=== PATIENT | female | born 1935 | race African-American/Black ===

== ENCOUNTER 2021-02-11 10:50 | Inpatient (IN) | payer MEDICARE, MEDICAID ==
[~2021-02-11] VITALS: Ht 154.9 cm; Wt 62.1 kg
[~2021-02-11 10:50] MED LIST: ETOMIDATE 2MG/ML 10ML VIAL IV ONE; SODIUM CHLORIDE 0.9% 10ML VIAL ONE; VECURONIUM BROMIDE 10 MG/VIAL IV ONE
[2021-02-11 11:42] LABS: HEMATOCRIT. 35.2 % (36.0-48.0); MEAN CORPUSCULAR HEMOGLOBIN 29.1 pg (28.0-32.0); MEAN CORPUSCULAR VOLUME 92.8 fL (81.0-99.0); MEAN PLATELET VOLUME 8.8 fl (7.4-10.4); PLATELET 186 x1000/uL (130-400); RED BLOOD CELL COUNT 3.79 mill/uL (4.2-5.4); RED CELL DISTRIBUTION WIDTH 17.1 % (11.6-14.6)
[2021-02-11 11:47] LABS: CHLORIDE 100 mEq/L (98-107); INR 1.3; PROTHROMBIN TIME 13.6 sec (9.6-11.0)
[2021-02-11 12:15] LABS: NUCLEATED RED BLOOD CELLS 3 /100 WBC; PLATELET ESTIMATE NORMAL
[2021-02-11] MEDS ORDERED: SODIUM CHLORIDE 0.9% 1000ML BAG (SEPSIS BOLUS) IV ONE (12:15)
[2021-02-11] MEDS ORDERED: AZITHROMYCIN 500 MG in DEXT 5% WATER 250 ML IV ONE (12:45)
[2021-02-11] MEDS ORDERED: CEFTRIAXONE 1 G PREMIX 50 ML IV ONE (12:45)
[2021-02-11] MEDS ORDERED: NITROGLYCERIN 0.4MG TABLET SL SL PRN (14:15)
[2021-02-11] MEDS ORDERED: ACETAMINOPHEN 325MG TABLET PO PRN ×2 (14:15)
[2021-02-11] MEDS ORDERED: IPRATROPIUM/ALBUTEROL 0.5-3(2.5)MG/3ML NEB NEB PRN (14:15)
[2021-02-11] MEDS ORDERED: GUAIFENESIN 200MG/10ML SUGAR FREE UDC PO PRN (14:15)
[2021-02-11] MEDS ORDERED: MAGNESIUM/ALUMINUM HYDROXIDE/SIMETHICONE 30ML UDC PO PRN (14:15)
[2021-02-11] MEDS ORDERED: ZOLPIDEM TARTRATE 5MG TABLET PO PRN (14:15)
[2021-02-11] MEDS ORDERED: KETOROLAC 15MG/ML VIAL IV PRN (14:15)
[2021-02-11] MEDS ORDERED: ONDANSETRON HCL 4MG/2ML INJ IV PRN (14:15)
[2021-02-11] MEDS ORDERED: CLONIDINE 0.1MG TABLET PO PRN (14:15)
[2021-02-11 16:00] LABS: FERRITIN 93 ng/mL (10-291)
[2021-02-11 16:08] LABS: VITAMIN B12 SERUM >2000 pg/mL pg/mL (211-911)
[2021-02-11 16:19] LABS: BG CARBOXYHEMOGLOBIN 1.5 % (0.5-1.5); BG DEOXYHEMOGLOBIN 1.4 % (0.0-5.0); BG FRACTION INSPIRED OXYGEN 100; BG HCO3 ACT 27.9 mmol/L (22.0-26.0); BG METHEMOGLOBIN 0.4 % (0.0-1.5); BG OXYGEN SATURATION 98.6 % (92.0-98.5); BG OXYHEMOGLOBIN 96.7 % (94.0-97.0); BG PCO2 96.6 mmHg (35.0-45.0); BG PH 7.078 (7.350-7.450); BG PO2 154.5 mmHg (75.0-100.0); BG SAMPLE SITE RIGHT BRACHIAL; BG TOTAL HEMOGLOBIN 11.8 g/dL (12.0-18.0); BG VENT MODE MASK - NRB
[2021-02-11 16:38] LABS: CLARITY URINE TURBID (CLEAR); COLOR URINE DARK YELLOW (YELLOW); KETONES URINE TRACE (NEGATIVE); LEUKOCYTE ESTERASE URINE 1+ (NEGATIVE); NITRITE URINE NEGATIVE (NEGATIVE); OCCULT BLOOD URINE 2+ (NEGATIVE); PROTEIN URINE 3+ (NEGATIVE); SPECIFIC GRAVITY URINE 1.017 (1.005-1.030)
[2021-02-11 17:17] LABS: *AMPHETAMINES SCREEN URINE NEGATIVE (NEGATIVE); *BARBITURATES SCREEN URINE NEGATIVE (NEGATIVE)
[2021-02-11 17:18] LABS: *BENZODIAZEPINES SCREEN URINE NEGATIVE (NEGATIVE); *COCAINE SCREEN URINE NEGATIVE (NEGATIVE); CANNABINOID URINE SCREEN NEGATIVE (NEGATIVE); METHADONE URINE SCREEN NEGATIVE (NEGATIVE); OPIATES URINE SCREEN PRESUMTIVE POSITIVE (NEGATIVE); PHENCYCLIDINE URINE SCREEN NEGATIVE (NEGATIVE)
[2021-02-11] MEDS ORDERED: ETOMIDATE 2MG/ML 10ML VIAL IV ONE (18:30)
[2021-02-11] MEDS ORDERED: MIDAZOLAM HCL 100 MG in DEXT 5% WATER 80 ML IV ONE (18:30)
[2021-02-11] MEDS ORDERED: MIDAZOLAM HCL 100 MG in SODIUM CHLORIDE 0.9% 80 ML IV NR (18:37)
[2021-02-11] MEDS ORDERED: NOREPINEPHRINE 8MG/250ML PMX 250 ML IV ONE (18:45)
[2021-02-11] MEDS ORDERED: FENTANYL CITRATE/PF 2,500 MCG in SODIUM CHLORIDE 0.9% 200 ML IV PRN (19:15)
[2021-02-11 19:35] LABS: BG BASE EXCESS 0.2 mmol/L (-2.0-2.0); BG CARBOXYHEMOGLOBIN 0.5 % (0.5-1.5); BG DEOXYHEMOGLOBIN 0.2 % (0.0-5.0); BG FRACTION INSPIRED OXYGEN 100; BG HCO3 ACT 26.5 mmol/L (22.0-26.0); BG METHEMOGLOBIN 0.3 % (0.0-1.5); BG OXYGEN SATURATION 99.8 % (92.0-98.5); BG PCO2 50.8 mmHg (35.0-45.0); BG PH 7.336 (7.350-7.450); BG PO2 505.2 mmHg (75.0-100.0); BG SAMPLE SITE RIGHT RADIAL; BG TOTAL HEMOGLOBIN 11.6 g/dL (12.0-18.0); BG VENT MODE VENT - AC
[2021-02-11] MEDS: ZINC SULFATE 220 MG ( 50 ) CAPSULE PO SCH (20:19)
[2021-02-11] MEDS: ASCORBIC ACID 500 MG TABLET PO SCH (20:20)
[2021-02-11] MEDS: FAMOTIDINE 20MG TABLET PO SCH (20:20)
[2021-02-11] MEDS: CHOLECALCIFEROL (D3) 1000 UNIT TABLET PO SCH (20:21)
[2021-02-11] MEDS ORDERED: ENOXAPARIN 60MG/0.6ML SYR SUBCUT SCH (21:00)
[2021-02-11] MEDS: DEXT 5%/LACTATED RINGERS 1,000 ML IV SCH (22:42)
[2021-02-11 23:05] LABS: CREATINE KINASE MB FRACTION 10.9 ng/mL (0.5-3.6)
[2021-02-12] VITALS (96 sets, daily range): BP systolic 84–156; BP diastolic 41–98
[2021-02-12] MEDS: IPRATROPIUM/ALBUTEROL 0.5-3(2.5)MG/3ML NEB HHN SCH ×6 (00:39→20:35)
[2021-02-12] MEDS: ENOXAPARIN 60MG/0.6ML SYR SUBCUT SCH (01:41)
[2021-02-12] MEDS ORDERED: MIDAZOLAM HCL 100 MG in SODIUM CHLORIDE 0.9% 80 ML IV PRN (05:00)
[2021-02-12 05:56] LABS: HEMATOCRIT. 29.8 % (36.0-48.0); HEMOGLOBIN. 9.9 g/dL (12.0-16.0); MEAN CORPUSCULAR HEMOGLOBIN 29.7 pg (28.0-32.0); MEAN CORPUSCULAR VOLUME 89.2 fL (81.0-99.0); MEAN PLATELET VOLUME 9.1 fl (7.4-10.4); PLATELET 159 x1000/uL (130-400); RED BLOOD CELL COUNT 3.34 mill/uL (4.2-5.4); RED CELL DISTRIBUTION WIDTH 16.4 % (11.6-14.6)
[2021-02-12 06:02] LABS: CHLORIDE 105 mEq/L (98-107)
[2021-02-12 06:08] LABS: PHOSPHORUS 2.2 mg/dL (2.5-4.9)
[2021-02-12 06:10] LABS: CREATINE KINASE 57 IU/L (26-192)
[2021-02-12 06:15] LABS: CREATINE KINASE MB FRACTION 8.8 ng/mL (0.5-3.6)
[2021-02-12] MEDS ORDERED: IOHEXOL-350 100 ML BOTTLE ONE (06:36)
[2021-02-12] MEDS: ASCORBIC ACID 500 MG TABLET PO SCH ×3 (08:56→21:29)
[2021-02-12] MEDS: DOCUSATE SODIUM 100MG CAPSULE PO PRN (08:56)
[2021-02-12] MEDS: ZINC SULFATE 220 MG ( 50 ) CAPSULE PO SCH (08:56)
[2021-02-12] MEDS: CHOLECALCIFEROL (D3) 1000 UNIT TABLET PO SCH (08:56)
[2021-02-12] MEDS: FAMOTIDINE 20MG TABLET PO SCH (08:56)
[2021-02-12] MEDS: DEXT 5%/LACTATED RINGERS 1,000 ML IV SCH ×2 (08:57→21:29)
[2021-02-12] MEDS ORDERED: CEFTRIAXONE 1 G PREMIX 50 ML IV SCH (09:00)
[2021-02-12] MEDS ORDERED: ASPIRIN 325MG EC TABLET PO SCH (09:00)
[2021-02-12] MEDS ORDERED: ENOXAPARIN 30MG/0.3ML SYR SUBCUT SCH (09:00)
[2021-02-12] MEDS: NOREPINEPHRINE 8 MG in DEXT 5% WATER 242 ML IV PRN (09:30)
[2021-02-12] MEDS: FENTANYL CITRATE/PF 2,500 MCG in SODIUM CHLORIDE 0.9% 200 ML IV PRN (09:32)
[2021-02-12 09:45] LABS: BG BASE EXCESS 2.1 mmol/L (-2.0-2.0); BG CARBOXYHEMOGLOBIN 0.3 % (0.5-1.5); BG DEOXYHEMOGLOBIN 7.1 % (0.0-5.0); BG FRACTION INSPIRED OXYGEN 40; BG HCO3 ACT 27.6 mmol/L (22.0-26.0); BG METHEMOGLOBIN 0.3 % (0.0-1.5); BG OXYGEN SATURATION 92.9 % (92.0-98.5); BG OXYHEMOGLOBIN 92.3 % (94.0-97.0); BG PCO2 46.9 mmHg (35.0-45.0); BG PH 7.387 (7.350-7.450); BG PO2 66.6 mmHg (75.0-100.0); BG SAMPLE SITE RIGHT RADIAL; BG VENT MODE VENT - AC
[2021-02-12] MEDS ORDERED: AZITHROMYCIN 500 MG in DEXT 5% WATER 250 ML IV SCH (11:00)
[2021-02-12] MEDS: CEFTRIAXONE 1,000 MG in DEXTROSE 5% WATER 50 ML IV SCH (11:10)
[2021-02-12] MEDS: AZITHROMYCIN 500 MG in DEXT 5% WATER 250 ML IV SCH (12:49)
[2021-02-12] MEDS: METHYLPREDNISOLONE SOD SUCC 40 MG/ML VIAL IV SCH ×2 (12:49→21:31)
[2021-02-12 13:28] LABS: PLATELET ESTIMATE NORMAL
[2021-02-12 19:30] LABS: CREATINE KINASE MB FRACTION 8.8 ng/mL (0.5-3.6)
[2021-02-12] MEDS: MIDAZOLAM HCL 100 MG in SODIUM CHLORIDE 0.9% 80 ML IV PRN (23:41)
[2021-02-13] VITALS (99 sets, daily range): BP systolic 64–150; BP diastolic 38–87
[2021-02-13] MEDS: IPRATROPIUM/ALBUTEROL 0.5-3(2.5)MG/3ML NEB HHN SCH ×6 (00:21→20:11)
[2021-02-13] MEDS: NOREPINEPHRINE 8 MG in DEXT 5% WATER 242 ML IV PRN ×2 (01:05→16:29)
[2021-02-13] MEDS: ENOXAPARIN 60MG/0.6ML SYR SUBCUT SCH (01:06)
[2021-02-13] MEDS: METHYLPREDNISOLONE SOD SUCC 40 MG/ML VIAL IV SCH (05:10)
[2021-02-13 05:17] LABS: HEMATOCRIT. 31.8 % (36.0-48.0); HEMOGLOBIN. 10.5 g/dL (12.0-16.0); MEAN CORPUSCULAR HEMOGLOBIN 29.4 pg (28.0-32.0); MEAN CORPUSCULAR VOLUME 89.3 fL (81.0-99.0); MEAN PLATELET VOLUME 9.5 fl (7.4-10.4); PLATELET 141 x1000/uL (130-400); RED BLOOD CELL COUNT 3.56 mill/uL (4.2-5.4); RED CELL DISTRIBUTION WIDTH 16.7 % (11.6-14.6)
[2021-02-13 05:23] LABS: CHLORIDE 107 mEq/L (98-107)
[2021-02-13 08:03] LABS: BG BASE EXCESS 1.7 mmol/L (-2.0-2.0); BG CARBOXYHEMOGLOBIN 0.4 % (0.5-1.5); BG DEOXYHEMOGLOBIN 9.4 % (0.0-5.0); BG HCO3 ACT 28.8 mmol/L (22.0-26.0); BG METHEMOGLOBIN 0.3 % (0.0-1.5); BG OXYGEN SATURATION 90.5 % (92.0-98.5); BG OXYHEMOGLOBIN 89.9 % (94.0-97.0); BG PCO2 57.6 mmHg (35.0-45.0); BG PH 7.317 (7.350-7.450); BG PO2 63.3 mmHg (75.0-100.0); BG SAMPLE SITE RIGHT BRACHIAL; BG TOTAL HEMOGLOBIN 11.4 g/dL (12.0-18.0); BG VENT MODE VENT - AC
[2021-02-13] MEDS: ASPIRIN 81MG EC TABLET PO SCH (09:07)
[2021-02-13] MEDS: DOCUSATE SODIUM 100MG CAPSULE PO PRN (09:07)
[2021-02-13] MEDS: ZINC SULFATE 220 MG ( 50 ) CAPSULE PO SCH (09:07)
[2021-02-13] MEDS: ASCORBIC ACID 500 MG TABLET PO SCH ×2 (09:08→21:09)
[2021-02-13] MEDS: FAMOTIDINE 20MG TABLET PO SCH (09:08)
[2021-02-13] MEDS: CHOLECALCIFEROL (D3) 1000 UNIT TABLET PO SCH (09:08)
[2021-02-13 10:42] LABS: NUCLEATED RED BLOOD CELLS 1 /100 WBC; PLATELET ESTIMATE NORMAL
[2021-02-13] MEDS: CEFTRIAXONE 1,000 MG in DEXTROSE 5% WATER 50 ML IV SCH (12:17)
[2021-02-13] MEDS: DEXT 5%/LACTATED RINGERS 1,000 ML IV SCH (12:59)
[2021-02-13] MEDS: AZITHROMYCIN 500 MG in DEXT 5% WATER 250 ML IV SCH (12:59)
[2021-02-13] MEDS: FENTANYL CITRATE/PF 2,500 MCG in SODIUM CHLORIDE 0.9% 200 ML IV PRN (13:00)
[2021-02-13] MEDS: METHYLPREDNISOLONE SOD SUCC 125 MG/2 ML VIAL IV SCH ×2 (16:28→21:10)
[2021-02-14] VITALS (95 sets, daily range): BP systolic 89–154; BP diastolic 44–84
[2021-02-14] MEDS: IPRATROPIUM/ALBUTEROL 0.5-3(2.5)MG/3ML NEB HHN SCH ×6 (00:17→20:11)
[2021-02-14] MEDS: ENOXAPARIN 60MG/0.6ML SYR SUBCUT SCH (01:41)
[2021-02-14] MEDS: DEXT 5%/LACTATED RINGERS 1,000 ML IV SCH ×2 (01:41→15:19)
[2021-02-14] MEDS: MIDAZOLAM HCL 100 MG in SODIUM CHLORIDE 0.9% 80 ML IV PRN (06:43)
[2021-02-14] MEDS: METHYLPREDNISOLONE SOD SUCC 125 MG/2 ML VIAL IV SCH ×3 (06:43→21:39)
[2021-02-14] MEDS: CHOLECALCIFEROL (D3) 1000 UNIT TABLET PO SCH (09:35)
[2021-02-14] MEDS: ZINC SULFATE 220 MG ( 50 ) CAPSULE PO SCH (09:35)
[2021-02-14] MEDS: FAMOTIDINE 20MG TABLET PO SCH (09:35)
[2021-02-14] MEDS: ASCORBIC ACID 500 MG TABLET PO SCH ×2 (09:35→20:38)
[2021-02-14] MEDS: ASPIRIN 81MG EC TABLET PO SCH (09:35)
[2021-02-14 10:25] LABS: BG BASE EXCESS 2.8 mmol/L (-2.0-2.0); BG CARBOXYHEMOGLOBIN 1.2 % (0.5-1.5); BG DEOXYHEMOGLOBIN 4.4 % (0.0-5.0); BG FRACTION INSPIRED OXYGEN 50; BG HCO3 ACT 29.6 mmol/L (22.0-26.0); BG METHEMOGLOBIN 0.3 % (0.0-1.5); BG OXYHEMOGLOBIN 94.1 % (94.0-97.0); BG PCO2 53.9 mmHg (35.0-45.0); BG PEEP (cmH2O) 0 cmH2O; BG PH 7.358 (7.350-7.450); BG PO2 85.5 mmHg (75.0-100.0); BG SAMPLE SITE LEFT RADIAL; BG TOTAL HEMOGLOBIN 9.5 g/dL (12.0-18.0); BG VENT MODE VENT - AC
[2021-02-14] MEDS: FOLIC ACID 1MG TABLET PO SCH (10:58)
[2021-02-14] MEDS: THIAMINE HCL 100MG TABLET PO SCH (10:58)
[2021-02-14] MEDS: CEFTRIAXONE 1,000 MG in DEXTROSE 5% WATER 50 ML IV SCH (10:58)
[2021-02-14] MEDS: FENTANYL CITRATE/PF 2,500 MCG in SODIUM CHLORIDE 0.9% 200 ML IV PRN (11:00)
[2021-02-14] MEDS: AZITHROMYCIN 500 MG in DEXT 5% WATER 250 ML IV SCH (13:35)
[2021-02-14] MEDS: MEROPENEM 1,000 MG in SODIUM CHLORIDE 0.9% 50 ML IV SCH (18:36)
[2021-02-15] VITALS (94 sets, daily range): BP systolic 85–132; BP diastolic 45–85
[2021-02-15] MEDS: IPRATROPIUM/ALBUTEROL 0.5-3(2.5)MG/3ML NEB HHN SCH ×5 (00:25→20:10)
[2021-02-15] MEDS: ENOXAPARIN 60MG/0.6ML SYR SUBCUT SCH (01:01)
[2021-02-15] MEDS: DEXT 5%/LACTATED RINGERS 1,000 ML IV SCH ×2 (03:14→16:35)
[2021-02-15] MEDS: MIDAZOLAM HCL 100 MG in SODIUM CHLORIDE 0.9% 80 ML IV PRN (03:15)
[2021-02-15 04:37] LABS: HEMATOCRIT. 29.3 % (36.0-48.0); HEMOGLOBIN. 9.4 g/dL (12.0-16.0); MEAN CORPUSCULAR HEMOGLOBIN 29.3 pg (28.0-32.0); MEAN PLATELET VOLUME 9.1 fl (7.4-10.4); PLATELET 94 x1000/uL (130-400); RED BLOOD CELL COUNT 3.22 mill/uL (4.2-5.4); RED CELL DISTRIBUTION WIDTH 17.4 % (11.6-14.6)
[2021-02-15 04:41] LABS: CHLORIDE 108 mEq/L (98-107)
[2021-02-15 04:44] LABS: PHOSPHORUS 1.9 mg/dL (2.5-4.9)
[2021-02-15] MEDS: METHYLPREDNISOLONE SOD SUCC 125 MG/2 ML VIAL IV SCH ×3 (06:22→21:22)
[2021-02-15] MEDS: MEROPENEM 1,000 MG in SODIUM CHLORIDE 0.9% 50 ML IV SCH ×2 (06:22→16:34)
[2021-02-15 09:39] LABS: BG BASE EXCESS 3.5 mmol/L (-2.0-2.0); BG CARBOXYHEMOGLOBIN 0.9 % (0.5-1.5); BG DEOXYHEMOGLOBIN 2.4 % (0.0-5.0); BG FRACTION INSPIRED OXYGEN 50; BG HCO3 ACT 29.5 mmol/L (22.0-26.0); BG METHEMOGLOBIN 0.3 % (0.0-1.5); BG OXYGEN SATURATION 97.6 % (92.0-98.5); BG OXYHEMOGLOBIN 96.4 % (94.0-97.0); BG PCO2 52.1 mmHg (35.0-45.0); BG PH 7.371 (7.350-7.450); BG PO2 105.8 mmHg (75.0-100.0); BG SAMPLE SITE RIGHT RADIAL; BG TOTAL HEMOGLOBIN 10.1 g/dL (12.0-18.0); BG VENT MODE VENT - AC
[2021-02-15] MEDS: THIAMINE HCL 100MG TABLET PO SCH (09:40)
[2021-02-15] MEDS: ZINC SULFATE 220 MG ( 50 ) CAPSULE PO SCH (09:40)
[2021-02-15] MEDS: FAMOTIDINE 20MG TABLET PO SCH (09:40)
[2021-02-15] MEDS: ASPIRIN 81MG EC TABLET PO SCH (09:40)
[2021-02-15] MEDS: ASCORBIC ACID 500 MG TABLET PO SCH ×2 (09:40→21:22)
[2021-02-15] MEDS: CHOLECALCIFEROL (D3) 1000 UNIT TABLET PO SCH (09:40)
[2021-02-15] MEDS: FOLIC ACID 1MG TABLET PO SCH (09:40)
[2021-02-15] MEDS: FENTANYL CITRATE/PF 2,500 MCG in SODIUM CHLORIDE 0.9% 200 ML IV PRN (09:54)
[2021-02-15 14:42] LABS: PLATELET ESTIMATE DECREASED
[2021-02-16] VITALS (63 sets, daily range): BP systolic 84–163; BP diastolic 43–111
[2021-02-16] MEDS: ENOXAPARIN 60MG/0.6ML SYR SUBCUT SCH (00:12)
[2021-02-16] MEDS: IPRATROPIUM/ALBUTEROL 0.5-3(2.5)MG/3ML NEB HHN SCH ×6 (00:18→20:16)
[2021-02-16] MEDS: MIDAZOLAM HCL 100 MG in SODIUM CHLORIDE 0.9% 80 ML IV PRN (05:47)
[2021-02-16] MEDS: METHYLPREDNISOLONE SOD SUCC 125 MG/2 ML VIAL IV SCH ×3 (05:47→21:05)
[2021-02-16] MEDS: FENTANYL CITRATE/PF 2,500 MCG in SODIUM CHLORIDE 0.9% 200 ML IV PRN (05:48)
[2021-02-16] MEDS: MEROPENEM 1,000 MG in SODIUM CHLORIDE 0.9% 50 ML IV SCH (05:48)
[2021-02-16] MEDS: DEXT 5%/LACTATED RINGERS 1,000 ML IV SCH ×2 (05:49→19:22)
[2021-02-16] MEDS: THIAMINE HCL 100MG TABLET PO SCH (10:40)
[2021-02-16] MEDS: CHOLECALCIFEROL (D3) 1000 UNIT TABLET PO SCH (10:40)
[2021-02-16] MEDS: FOLIC ACID 1MG TABLET PO SCH (10:40)
[2021-02-16] MEDS: ASCORBIC ACID 500 MG TABLET PO SCH ×2 (10:41→21:05)
[2021-02-16] MEDS: ASPIRIN 81MG EC TABLET PO SCH (10:41)
[2021-02-16] MEDS: FAMOTIDINE 20MG TABLET PO SCH (10:43)
[2021-02-16] MEDS: ZINC SULFATE 220 MG ( 50 ) CAPSULE PO SCH (10:44)
[2021-02-16 11:41] LABS: BG BASE EXCESS 2.4 mmol/L (-2.0-2.0); BG CARBOXYHEMOGLOBIN 0.3 % (0.5-1.5); BG DEOXYHEMOGLOBIN 1.3 % (0.0-5.0); BG FRACTION INSPIRED OXYGEN 40; BG HCO3 ACT 26.2 mmol/L (22.0-26.0); BG METHEMOGLOBIN 0.1 % (0.0-1.5); BG OXYGEN SATURATION 98.7 % (92.0-98.5); BG OXYHEMOGLOBIN 98.3 % (94.0-97.0); BG PCO2 37.5 mmHg (35.0-45.0); BG PEEP (cmH2O) 0 cmH2O; BG PH 7.462 (7.350-7.450); BG PO2 161.6 mmHg (75.0-100.0); BG SAMPLE SITE LEFT RADIAL; BG VENT MODE VENT - AC
[2021-02-16 11:44] LABS: HEMATOCRIT. 28.3 % (36.0-48.0); HEMOGLOBIN. 9.2 g/dL (12.0-16.0); MEAN CORPUSCULAR HEMOGLOBIN 29.5 pg (28.0-32.0); MEAN CORPUSCULAR VOLUME 91.1 fL (81.0-99.0); PLATELET 61 x1000/uL (130-400); RED BLOOD CELL COUNT 3.11 mill/uL (4.2-5.4); RED CELL DISTRIBUTION WIDTH 17.1 % (11.6-14.6)
[2021-02-16 11:49] LABS: CHLORIDE 110 mEq/L (98-107)
[2021-02-16] MEDS: MIDODRINE HCL 5MG TABLET PO SCH ×2 (12:59→17:38)
[2021-02-16] MEDS ORDERED: FUROSEMIDE 40MG/4ML VIAL IVP SCH (13:00)
[2021-02-16 13:43] LABS: PLATELET ESTIMATE DECREASED
[2021-02-16] MEDS: MEROPENEM 1000MG in NORMAL SALINE 100ML IV SCH (17:37)
[2021-02-16] MEDS ORDERED: SODIUM POLYSTYRENE SULFONATE 15 G/60 ML BOT PO SCH (21:00)
[2021-02-17] VITALS (96 sets, daily range): BP systolic 73–156; BP diastolic 42–92
[2021-02-17] MEDS: IPRATROPIUM/ALBUTEROL 0.5-3(2.5)MG/3ML NEB HHN SCH ×6 (00:15→20:03)
[2021-02-17] MEDS: FENTANYL CITRATE/PF 2,500 MCG in SODIUM CHLORIDE 0.9% 200 ML IV PRN ×2 (04:48→21:14)
[2021-02-17] MEDS: NOREPINEPHRINE 8 MG in DEXT 5% WATER 242 ML IV PRN (04:48)
[2021-02-17] MEDS: MIDAZOLAM HCL 100 MG in SODIUM CHLORIDE 0.9% 80 ML IV PRN (04:49)
[2021-02-17] MEDS: METHYLPREDNISOLONE SOD SUCC 125 MG/2 ML VIAL IV SCH (04:56)
[2021-02-17] MEDS: MEROPENEM 1000MG in NORMAL SALINE 100ML IV SCH ×2 (04:56→17:38)
[2021-02-17 06:06] LABS: CHLORIDE 109 mEq/L (98-107)
[2021-02-17 07:48] LABS: BG CARBOXYHEMOGLOBIN 0.6 % (0.5-1.5); BG DEOXYHEMOGLOBIN 6.6 % (0.0-5.0); BG HCO3 ACT 28.9 mmol/L (22.0-26.0); BG METHEMOGLOBIN 0.1 % (0.0-1.5); BG OXYGEN SATURATION 93.4 % (92.0-98.5); BG OXYHEMOGLOBIN 92.7 % (94.0-97.0); BG PCO2 45.5 mmHg (35.0-45.0); BG PO2 69.2 mmHg (75.0-100.0); BG SAMPLE SITE RIGHT BRACHIAL; BG TOTAL HEMOGLOBIN 5.6 g/dL (12.0-18.0); BG VENT MODE VENT - AC
[2021-02-17] MEDS: THIAMINE HCL 100MG TABLET PO SCH (08:46)
[2021-02-17] MEDS: ASPIRIN 81MG EC TABLET PO SCH (08:46)
[2021-02-17] MEDS: CHOLECALCIFEROL (D3) 1000 UNIT TABLET PO SCH (08:47)
[2021-02-17] MEDS: MIDODRINE HCL 5MG TABLET PO SCH ×3 (08:47→17:00)
[2021-02-17] MEDS: ASCORBIC ACID 500 MG TABLET PO SCH ×2 (08:47→21:13)
[2021-02-17] MEDS: ZINC SULFATE 220 MG ( 50 ) CAPSULE PO SCH (08:47)
[2021-02-17] MEDS: FAMOTIDINE 20MG TABLET PO SCH (08:47)
[2021-02-17] MEDS: FOLIC ACID 1MG TABLET PO SCH (08:47)
[2021-02-17] MEDS: DEXT 5%/LACTATED RINGERS 1,000 ML IV SCH (08:58)
[2021-02-17 09:29] LABS: MEAN CORPUSCULAR HEMOGLOBIN 28.4 pg (28.0-32.0); MEAN PLATELET VOLUME 10.9 fl (7.4-10.4); PLATELET 73 x1000/uL (130-400); RED BLOOD CELL COUNT 1.86 mill/uL (4.2-5.4); RED CELL DISTRIBUTION WIDTH 17.5 % (11.6-14.6)
[2021-02-17] MEDS ORDERED: SODIUM POLYSTYRENE SULFONATE 15 G/60 ML BOT PO NR (09:30)
[2021-02-17 09:32] LABS: HEMATOCRIT. 16.9 % (36.0-48.0); HEMOGLOBIN. 5.3 g/dL (12.0-16.0)
[2021-02-17] MEDS: METHYLPREDNISOLONE SOD SUCC 40 MG/ML VIAL IV SCH ×2 (13:54→21:13)
[2021-02-17] MEDS: PANTOPRAZOLE SODIUM 40 MG/VIAL IV SCH ×2 (13:54→23:02)
[2021-02-17 20:17] LABS: PLATELET ESTIMATE DECREASED
[2021-02-17 20:46] LABS: INR 1.2; PROTHROMBIN TIME 12.3 sec (9.6-11.0)
[2021-02-18] VITALS (84 sets, daily range): BP systolic 77–154; BP diastolic 39–90
[2021-02-18] MEDS: IPRATROPIUM/ALBUTEROL 0.5-3(2.5)MG/3ML NEB HHN SCH ×6 (00:29→19:48)
[2021-02-18] MEDS: MIDAZOLAM HCL 100 MG in SODIUM CHLORIDE 0.9% 80 ML IV PRN ×2 (02:24→21:05)
[2021-02-18] MEDS: NOREPINEPHRINE 8 MG in DEXT 5% WATER 242 ML IV PRN (02:42)
[2021-02-18] MEDS: MEROPENEM 1000MG in NORMAL SALINE 100ML IV SCH ×2 (04:49→16:37)
[2021-02-18] MEDS: DEXT 5%/LACTATED RINGERS 1,000 ML IV SCH ×2 (04:49→11:37)
[2021-02-18] MEDS: METHYLPREDNISOLONE SOD SUCC 40 MG/ML VIAL IV SCH ×3 (04:50→21:05)
[2021-02-18 05:51] LABS: HEMATOCRIT. 24.5 % (36.0-48.0); HEMOGLOBIN. 8.5 g/dL (12.0-16.0); MEAN CORPUSCULAR HEMOGLOBIN 30.9 pg (28.0-32.0); MEAN PLATELET VOLUME 10.3 fl (7.4-10.4); PLATELET 57 x1000/uL (130-400); RED BLOOD CELL COUNT 2.76 mill/uL (4.2-5.4); RED CELL DISTRIBUTION WIDTH 14.7 % (11.6-14.6)
[2021-02-18 05:59] LABS: CHLORIDE 110 mEq/L (98-107)
[2021-02-18] MEDS: ASCORBIC ACID 500 MG TABLET PO SCH ×2 (08:17→21:05)
[2021-02-18] MEDS: FOLIC ACID 1MG TABLET PO SCH (08:17)
[2021-02-18] MEDS: CHOLECALCIFEROL (D3) 1000 UNIT TABLET PO SCH (08:17)
[2021-02-18] MEDS: PANTOPRAZOLE SODIUM 40 MG/VIAL IV SCH ×2 (08:17→21:05)
[2021-02-18] MEDS: ZINC SULFATE 220 MG ( 50 ) CAPSULE PO SCH (08:17)
[2021-02-18] MEDS: MIDODRINE HCL 5MG TABLET PO SCH ×3 (08:18→16:40)
[2021-02-18] MEDS: THIAMINE HCL 100MG TABLET PO SCH (08:18)
[2021-02-18 09:39] LABS: BG BASE EXCESS 4.7 mmol/L (-2.0-2.0); BG CARBOXYHEMOGLOBIN 0.7 % (0.5-1.5); BG FRACTION INSPIRED OXYGEN 40; BG HCO3 ACT 29.7 mmol/L (22.0-26.0); BG METHEMOGLOBIN 0.4 % (0.0-1.5); BG OXYGEN SATURATION 94.9 % (92.0-98.5); BG OXYHEMOGLOBIN 93.9 % (94.0-97.0); BG PCO2 46.7 mmHg (35.0-45.0); BG PH 7.422 (7.350-7.450); BG PO2 78.6 mmHg (75.0-100.0); BG SAMPLE SITE LEFT RADIAL; BG TOTAL HEMOGLOBIN 8.9 g/dL (12.0-18.0); BG TOTAL RESPIRATORY RATE 19 b/min; BG VENT MODE VENT - AC
[2021-02-18] MEDS: FERROUS SULFATE 325MG TABLET PO SCH ×2 (13:03→21:05)
[2021-02-18 14:07] LABS: PLATELET ESTIMATE DECREASED
[2021-02-18] MEDS: FENTANYL CITRATE/PF 2,500 MCG in SODIUM CHLORIDE 0.9% 200 ML IV PRN ×2 (14:59→16:38)
[2021-02-19] VITALS (86 sets, daily range): BP systolic 83–142; BP diastolic 40–114
[2021-02-19] MEDS: IPRATROPIUM/ALBUTEROL 0.5-3(2.5)MG/3ML NEB HHN SCH ×7 (00:11→23:50)
[2021-02-19] MEDS: DEXT 5%/LACTATED RINGERS 1,000 ML IV SCH ×2 (00:48→13:59)
[2021-02-19 05:24] LABS: HEMATOCRIT. 22.8 % (36.0-48.0); MEAN CORPUSCULAR HEMOGLOBIN 31.2 pg (28.0-32.0); MEAN CORPUSCULAR VOLUME 89.3 fL (81.0-99.0); MEAN PLATELET VOLUME 10.4 fl (7.4-10.4); PLATELET 71 x1000/uL (130-400); RED BLOOD CELL COUNT 2.55 mill/uL (4.2-5.4); RED CELL DISTRIBUTION WIDTH 15.6 % (11.6-14.6)
[2021-02-19 05:30] LABS: CHLORIDE 110 mEq/L (98-107)
[2021-02-19 05:32] LABS: INR 1.1; PROTHROMBIN TIME 11.9 sec (9.6-11.0)
[2021-02-19] MEDS: MEROPENEM 1000MG in NORMAL SALINE 100ML IV SCH ×2 (05:53→16:29)
[2021-02-19] MEDS: METHYLPREDNISOLONE SOD SUCC 40 MG/ML VIAL IV SCH ×2 (05:53→17:35)
[2021-02-19] MEDS: FERROUS SULFATE 325MG TABLET PO SCH ×2 (06:21→17:34)
[2021-02-19 07:07] LABS: PLATELET ESTIMATE DECREASED
[2021-02-19 08:07] LABS: BG BASE EXCESS 7.3 mmol/L (-2.0-2.0); BG CARBOXYHEMOGLOBIN 0.3 % (0.5-1.5); BG HCO3 ACT 32.1 mmol/L (22.0-26.0); BG METHEMOGLOBIN 0.3 % (0.0-1.5); BG OXYHEMOGLOBIN 91.4 % (94.0-97.0); BG PCO2 47.3 mmHg (35.0-45.0); BG PH 7.449 (7.350-7.450); BG PO2 60.9 mmHg (75.0-100.0); BG SAMPLE SITE RIGHT RADIAL; BG TOTAL HEMOGLOBIN 8.2 g/dL (12.0-18.0); BG VENT MODE VENT - AC
[2021-02-19] MEDS: PANTOPRAZOLE SODIUM 40 MG/VIAL IV SCH ×2 (09:01→20:55)
[2021-02-19] MEDS: FOLIC ACID 1MG TABLET PO SCH (09:01)
[2021-02-19] MEDS: THIAMINE HCL 100MG TABLET PO SCH (09:01)
[2021-02-19] MEDS: MIDODRINE HCL 5MG TABLET PO SCH ×3 (09:02→17:35)
[2021-02-19] MEDS: ASCORBIC ACID 500 MG TABLET PO SCH ×2 (09:02→20:55)
[2021-02-19] MEDS: CHOLECALCIFEROL (D3) 1000 UNIT TABLET PO SCH (09:02)
[2021-02-19] MEDS: ZINC SULFATE 220 MG ( 50 ) CAPSULE PO SCH (09:02)
[2021-02-19] MEDS: FENTANYL CITRATE/PF 2,500 MCG in SODIUM CHLORIDE 0.9% 200 ML IV PRN (14:37)
[2021-02-19] MEDS: MIDAZOLAM HCL 100 MG in SODIUM CHLORIDE 0.9% 80 ML IV PRN (16:49)
[2021-02-20] VITALS (88 sets, daily range): BP systolic 48–169; BP diastolic 17–105
[2021-02-20] MEDS: IPRATROPIUM/ALBUTEROL 0.5-3(2.5)MG/3ML NEB HHN SCH ×5 (03:57→20:04)
[2021-02-20 05:30] LABS: CHLORIDE 110 mEq/L (98-107); HEMATOCRIT. 21.7 % (36.0-48.0); HEMOGLOBIN. 7.2 g/dL (12.0-16.0); MEAN CORPUSCULAR HEMOGLOBIN 30.7 pg (28.0-32.0); MEAN CORPUSCULAR VOLUME 92.4 fL (81.0-99.0); MEAN PLATELET VOLUME 11.1 fl (7.4-10.4); PLATELET 55 x1000/uL (130-400); RED BLOOD CELL COUNT 2.35 mill/uL (4.2-5.4); RED CELL DISTRIBUTION WIDTH 15.9 % (11.6-14.6)
[2021-02-20] MEDS: FERROUS SULFATE 325MG TABLET PO SCH ×2 (07:00→17:15)
[2021-02-20 07:40] LABS: PLATELET ESTIMATE DECREASED
[2021-02-20] MEDS: DEXT 5%/LACTATED RINGERS 1,000 ML IV SCH ×2 (08:34→17:15)
[2021-02-20] MEDS: FENTANYL CITRATE/PF 2,500 MCG in SODIUM CHLORIDE 0.9% 200 ML IV PRN (08:35)
[2021-02-20] MEDS: MIDAZOLAM HCL 100 MG in SODIUM CHLORIDE 0.9% 80 ML IV PRN ×2 (08:36→16:24)
[2021-02-20 09:17] LABS: BG BASE EXCESS 8.9 mmol/L (-2.0-2.0); BG CARBOXYHEMOGLOBIN 0.9 % (0.5-1.5); BG DEOXYHEMOGLOBIN 4.2 % (0.0-5.0); BG FRACTION INSPIRED OXYGEN 40; BG HCO3 ACT 33.6 mmol/L (22.0-26.0); BG METHEMOGLOBIN 0.4 % (0.0-1.5); BG OXYGEN SATURATION 95.7 % (92.0-98.5); BG OXYHEMOGLOBIN 94.5 % (94.0-97.0); BG PCO2 47.9 mmHg (35.0-45.0); BG PEEP (cmH2O) 0 cmH2O; BG PH 7.464 (7.350-7.450); BG PO2 81.3 mmHg (75.0-100.0); BG SAMPLE SITE RIGHT RADIAL; BG TOTAL HEMOGLOBIN 7.6 g/dL (12.0-18.0); BG VENT MODE VENT - AC
[2021-02-20] MEDS: FOLIC ACID 1MG TABLET PO SCH (09:53)
[2021-02-20] MEDS: PANTOPRAZOLE SODIUM 40 MG/VIAL IV SCH ×2 (09:53→20:46)
[2021-02-20] MEDS: ASCORBIC ACID 500 MG TABLET PO SCH ×2 (09:53→20:46)
[2021-02-20] MEDS: CHOLECALCIFEROL (D3) 1000 UNIT TABLET PO SCH (09:53)
[2021-02-20] MEDS: METHYLPREDNISOLONE SOD SUCC 40 MG/ML VIAL IV SCH ×2 (09:53→17:15)
[2021-02-20] MEDS: MIDODRINE HCL 5MG TABLET PO SCH ×3 (09:53→17:15)
[2021-02-20] MEDS: THIAMINE HCL 100MG TABLET PO SCH (09:53)
[2021-02-20] MEDS: ZINC SULFATE 220 MG ( 50 ) CAPSULE PO SCH (09:53)
[2021-02-20] MEDS ORDERED: FENTANYL CITRATE/PF 50MCG/ML 2ML VIAL ONE (12:35)
[2021-02-20] MEDS ORDERED: MIDAZOLAM HCL 5 MG/5 ML VIAL ONE (12:35)
[2021-02-20] MEDS ORDERED: MIDAZOLAM HCL 5 MG/5 ML VIAL IV PRN (13:00)
[2021-02-20] MEDS: MEROPENEM 1,000 MG in SODIUM CHLORIDE 0.9% 100 ML IV SCH ×2 (14:25→20:47)
[2021-02-21] VITALS (86 sets, daily range): BP systolic 73–169; BP diastolic 31–118
[2021-02-21] MEDS: IPRATROPIUM/ALBUTEROL 0.5-3(2.5)MG/3ML NEB HHN SCH ×6 (00:12→19:59)
[2021-02-21] MEDS: FENTANYL CITRATE/PF 2,500 MCG in SODIUM CHLORIDE 0.9% 200 ML IV PRN ×2 (01:08→18:30)
[2021-02-21] MEDS: MEROPENEM 1,000 MG in SODIUM CHLORIDE 0.9% 100 ML IV SCH ×3 (05:11→20:40)
[2021-02-21 05:35] LABS: HEMATOCRIT. 27.2 % (36.0-48.0); HEMOGLOBIN. 9.3 g/dL (12.0-16.0); MEAN CORPUSCULAR HEMOGLOBIN 30.9 pg (28.0-32.0); MEAN PLATELET VOLUME 10.4 fl (7.4-10.4); PLATELET 99 x1000/uL (130-400); RED BLOOD CELL COUNT 2.99 mill/uL (4.2-5.4); RED CELL DISTRIBUTION WIDTH 15.9 % (11.6-14.6)
[2021-02-21 05:41] LABS: CHLORIDE 107 mEq/L (98-107)
[2021-02-21] MEDS: DEXT 5%/LACTATED RINGERS 1,000 ML IV SCH (06:51)
[2021-02-21] MEDS: FERROUS SULFATE 325MG TABLET PO SCH ×2 (06:51→18:25)
[2021-02-21 08:13] LABS: PLATELET ESTIMATE SLIGHTLY DECREASED
[2021-02-21 08:15] LABS: BG BASE EXCESS 7.4 mmol/L (-2.0-2.0); BG CARBOXYHEMOGLOBIN 0.9 % (0.5-1.5); BG DEOXYHEMOGLOBIN 9.1 % (0.0-5.0); BG HCO3 ACT 33.3 mmol/L (22.0-26.0); BG METHEMOGLOBIN 0.5 % (0.0-1.5); BG OXYGEN SATURATION 90.8 % (92.0-98.5); BG OXYHEMOGLOBIN 89.5 % (94.0-97.0); BG PCO2 54.6 mmHg (35.0-45.0); BG PH 7.403 (7.350-7.450); BG PO2 58.7 mmHg (75.0-100.0); BG SAMPLE SITE RIGHT RADIAL; BG TOTAL HEMOGLOBIN 9.4 g/dL (12.0-18.0); BG VENT MODE VENT - AC
[2021-02-21] MEDS: CHOLECALCIFEROL (D3) 1000 UNIT TABLET PO SCH (09:39)
[2021-02-21] MEDS: ZINC SULFATE 220 MG ( 50 ) CAPSULE PO SCH (09:39)
[2021-02-21] MEDS: ASCORBIC ACID 500 MG TABLET PO SCH ×2 (09:39→20:40)
[2021-02-21] MEDS: PANTOPRAZOLE SODIUM 40 MG/VIAL IV SCH ×2 (09:39→20:40)
[2021-02-21] MEDS: MIDODRINE HCL 5MG TABLET PO SCH ×3 (09:39→18:25)
[2021-02-21] MEDS: THIAMINE HCL 100MG TABLET PO SCH (09:39)
[2021-02-21] MEDS: METHYLPREDNISOLONE SOD SUCC 40 MG/ML VIAL IV SCH ×2 (09:39→18:24)
[2021-02-21] MEDS: DOCUSATE SODIUM 100MG CAPSULE PO PRN (09:39)
[2021-02-21] MEDS: FOLIC ACID 1MG TABLET PO SCH (09:40)
[2021-02-21] MEDS ORDERED: LIDOCAINE HCL 1% 20ML VIAL (Pyxis) INJ ONE (10:44)
[2021-02-21] MEDS ORDERED: IOHEXOL-300 100 ML BOTTLE ONE (10:44)
[2021-02-21] MEDS: MIDAZOLAM HCL 100 MG in SODIUM CHLORIDE 0.9% 80 ML IV PRN (13:03)
[2021-02-21] MEDS: SUCRALFATE 1 G/10 ML UDC PO SCH ×2 (18:30→20:40)
[2021-02-22] VITALS (88 sets, daily range): BP systolic 54–163; BP diastolic 15–125
[2021-02-22] MEDS: IPRATROPIUM/ALBUTEROL 0.5-3(2.5)MG/3ML NEB HHN SCH ×6 (00:13→20:24)
[2021-02-22] MEDS: MEROPENEM 1,000 MG in SODIUM CHLORIDE 0.9% 100 ML IV SCH ×3 (06:05→20:44)
[2021-02-22] MEDS: SUCRALFATE 1 G/10 ML UDC PO SCH ×4 (06:05→20:44)
[2021-02-22] MEDS: FERROUS SULFATE 325MG TABLET PO SCH ×2 (06:16→17:10)
[2021-02-22] MEDS: METHYLPREDNISOLONE SOD SUCC 40 MG/ML VIAL IV SCH ×2 (08:52→17:11)
[2021-02-22] MEDS: ZINC SULFATE 220 MG ( 50 ) CAPSULE PO SCH (08:52)
[2021-02-22] MEDS: CHOLECALCIFEROL (D3) 1000 UNIT TABLET PO SCH (08:52)
[2021-02-22] MEDS: FOLIC ACID 1MG TABLET PO SCH (08:52)
[2021-02-22] MEDS: ASCORBIC ACID 500 MG TABLET PO SCH ×2 (08:52→20:44)
[2021-02-22] MEDS: PANTOPRAZOLE SODIUM 40 MG/VIAL IV SCH ×2 (08:52→20:44)
[2021-02-22] MEDS: THIAMINE HCL 100MG TABLET PO SCH (08:52)
[2021-02-22] MEDS: DEXT 5%/LACTATED RINGERS 1,000 ML IV SCH (08:53)
[2021-02-22] MEDS: MIDODRINE HCL 5MG TABLET PO SCH ×3 (08:53→17:10)
[2021-02-22 09:24] LABS: BG BASE EXCESS 4.9 mmol/L (-2.0-2.0); BG CARBOXYHEMOGLOBIN 1.4 % (0.5-1.5); BG DEOXYHEMOGLOBIN 10.6 % (0.0-5.0); BG FRACTION INSPIRED OXYGEN 40; BG HCO3 ACT 32.2 mmol/L (22.0-26.0); BG METHEMOGLOBIN 0.3 % (0.0-1.5); BG OXYGEN SATURATION 89.2 % (92.0-98.5); BG OXYHEMOGLOBIN 87.7 % (94.0-97.0); BG PCO2 63.7 mmHg (35.0-45.0); BG PH 7.322 (7.350-7.450); BG PO2 58.8 mmHg (75.0-100.0); BG SAMPLE SITE RIGHT RADIAL; BG TOTAL HEMOGLOBIN 10.3 g/dL (12.0-18.0); BG TOTAL RESPIRATORY RATE 19 b/min; BG VENT MODE VENT - SIMV
[2021-02-22] MEDS: MIDAZOLAM HCL 100 MG in SODIUM CHLORIDE 0.9% 80 ML IV PRN (09:32)
[2021-02-22] MEDS: FENTANYL CITRATE/PF 2,500 MCG in SODIUM CHLORIDE 0.9% 200 ML IV PRN ×2 (09:33→21:12)
[2021-02-22 11:39] LABS: BG BASE EXCESS 6.3 mmol/L (-2.0-2.0); BG CARBOXYHEMOGLOBIN 0.5 % (0.5-1.5); BG DEOXYHEMOGLOBIN 14.4 % (0.0-5.0); BG HCO3 ACT 33.7 mmol/L (22.0-26.0); BG METHEMOGLOBIN 0.7 % (0.0-1.5); BG OXYGEN SATURATION 85.4 % (92.0-98.5); BG OXYHEMOGLOBIN 84.4 % (94.0-97.0); BG PH 7.332 (7.350-7.450); BG PO2 49.2 mmHg (75.0-100.0); BG SAMPLE SITE RIGHT RADIAL; BG TOTAL HEMOGLOBIN 10.4 g/dL (12.0-18.0); BG VENT MODE VENT - AC
[2021-02-22 16:22] LABS: INR 1.1; PROTHROMBIN TIME 11.8 sec (9.6-11.0)
[2021-02-23] VITALS (76 sets, daily range): BP systolic 81–179; BP diastolic 39–114
[2021-02-23] MEDS: IPRATROPIUM/ALBUTEROL 0.5-3(2.5)MG/3ML NEB HHN SCH ×6 (00:09→20:20)
[2021-02-23] MEDS: DEXT 5%/LACTATED RINGERS 1,000 ML IV SCH ×2 (04:06→21:49)
[2021-02-23] MEDS: MIDAZOLAM HCL 100 MG in SODIUM CHLORIDE 0.9% 80 ML IV PRN (04:07)
[2021-02-23 05:05] LABS: HEMATOCRIT. 26.2 % (36.0-48.0); HEMOGLOBIN. 8.7 g/dL (12.0-16.0); MEAN CORPUSCULAR HEMOGLOBIN 30.7 pg (28.0-32.0); MEAN CORPUSCULAR VOLUME 91.9 fL (81.0-99.0); MEAN PLATELET VOLUME 10.6 fl (7.4-10.4); PLATELET 97 x1000/uL (130-400); RED BLOOD CELL COUNT 2.85 mill/uL (4.2-5.4); RED CELL DISTRIBUTION WIDTH 15.6 % (11.6-14.6)
[2021-02-23 05:16] LABS: CHLORIDE 106 mEq/L (98-107)
[2021-02-23 05:42] LABS: INR 1.3; PARTIAL THROMBOPLASTIN TIME 21.6 sec (23.4-31.0); PROTHROMBIN TIME 13.5 sec (9.6-11.0)
[2021-02-23] MEDS: SUCRALFATE 1 G/10 ML UDC PO SCH ×4 (06:27→21:48)
[2021-02-23] MEDS: FERROUS SULFATE 325MG TABLET PO SCH ×2 (06:27→16:12)
[2021-02-23] MEDS ORDERED: LIDOCAINE HCL/EPINEPHRINE 1%-EPI 1:100,000 20 ML VIAL ONE (07:07)
[2021-02-23] MEDS: MIDODRINE HCL 5MG TABLET PO SCH ×3 (09:00→16:13)
[2021-02-23] MEDS: THIAMINE HCL 100MG TABLET PO SCH (10:10)
[2021-02-23] MEDS: PANTOPRAZOLE SODIUM 40 MG/VIAL IV SCH ×2 (10:10→21:48)
[2021-02-23] MEDS: CHOLECALCIFEROL (D3) 1000 UNIT TABLET PO SCH (10:10)
[2021-02-23] MEDS: ASCORBIC ACID 500 MG TABLET PO SCH ×2 (10:10→21:49)
[2021-02-23] MEDS: METHYLPREDNISOLONE SOD SUCC 40 MG/ML VIAL IV SCH ×2 (10:11→16:13)
[2021-02-23] MEDS: ZINC SULFATE 220 MG ( 50 ) CAPSULE PO SCH (10:11)
[2021-02-23] MEDS: FOLIC ACID 1MG TABLET PO SCH (10:11)
[2021-02-23] MEDS: FENTANYL CITRATE/PF 2,500 MCG in SODIUM CHLORIDE 0.9% 200 ML IV PRN (10:13)
[2021-02-23 10:21] LABS: BG BASE EXCESS 5.6 mmol/L (-2.0-2.0); BG CARBOXYHEMOGLOBIN 1.6 % (0.5-1.5); BG DEOXYHEMOGLOBIN 7.2 % (0.0-5.0); BG FRACTION INSPIRED OXYGEN 40; BG HCO3 ACT 31.6 mmol/L (22.0-26.0); BG METHEMOGLOBIN 0.3 % (0.0-1.5); BG OXYGEN SATURATION 92.7 % (92.0-98.5); BG OXYHEMOGLOBIN 90.9 % (94.0-97.0); BG PCO2 54.2 mmHg (35.0-45.0); BG PH 7.384 (7.350-7.450); BG PO2 65.6 mmHg (75.0-100.0); BG SAMPLE SITE RIGHT RADIAL; BG TOTAL HEMOGLOBIN 9.8 g/dL (12.0-18.0); BG VENT MODE VENT - AC
[2021-02-23] MEDS ORDERED: FUROSEMIDE 40MG/4ML VIAL IVP NR (10:45)
[2021-02-23] MEDS ORDERED: NALOXONE HCL 0.4MG/ML VIAL IV PRN (11:15)
[2021-02-23] MEDS: MORPHINE SULFATE 2 MG/ML CPJ (NOT FOR IM USE) IV PRN (16:09)
[2021-02-23 17:01] LABS: PLATELET ESTIMATE DECREASED
[2021-02-24] VITALS (58 sets, daily range): BP systolic 90–192; BP diastolic 34–126
[2021-02-24] MEDS: IPRATROPIUM/ALBUTEROL 0.5-3(2.5)MG/3ML NEB HHN SCH ×6 (00:19→20:29)
[2021-02-24] MEDS: FENTANYL CITRATE/PF 2,500 MCG in SODIUM CHLORIDE 0.9% 200 ML IV PRN (04:53)
[2021-02-24] MEDS: SUCRALFATE 1 G/10 ML UDC PO SCH ×4 (06:47→20:38)
[2021-02-24] MEDS: FERROUS SULFATE 325MG TABLET PO SCH ×2 (06:48→18:10)
[2021-02-24] MEDS: THIAMINE HCL 100MG TABLET PO SCH (08:14)
[2021-02-24] MEDS: FOLIC ACID 1MG TABLET PO SCH (08:14)
[2021-02-24] MEDS: METHYLPREDNISOLONE SOD SUCC 40 MG/ML VIAL IV SCH (08:14)
[2021-02-24] MEDS: ASCORBIC ACID 500 MG TABLET PO SCH ×2 (08:14→20:38)
[2021-02-24] MEDS: PANTOPRAZOLE SODIUM 40 MG/VIAL IV SCH ×2 (08:14→20:38)
[2021-02-24] MEDS: CHOLECALCIFEROL (D3) 1000 UNIT TABLET PO SCH (08:14)
[2021-02-24] MEDS: MIDODRINE HCL 5MG TABLET PO SCH ×3 (08:15→17:00)
[2021-02-24] MEDS: ZINC SULFATE 220 MG ( 50 ) CAPSULE PO SCH (08:15)
[2021-02-24] MEDS: MIDAZOLAM HCL 100 MG in SODIUM CHLORIDE 0.9% 80 ML IV PRN (08:16)
[2021-02-24 08:49] LABS: BG BASE EXCESS 12.5 mmol/L (-2.0-2.0); BG DEOXYHEMOGLOBIN 8.7 % (0.0-5.0); BG HCO3 ACT 40.1 mmol/L (22.0-26.0); BG METHEMOGLOBIN 0.3 % (0.0-1.5); BG OXYGEN SATURATION 91.2 % (92.0-98.5); BG PCO2 70.1 mmHg (35.0-45.0); BG PH 7.375 (7.350-7.450); BG PO2 62.3 mmHg (75.0-100.0); BG SAMPLE SITE LEFT RADIAL; BG TOTAL HEMOGLOBIN 10.5 g/dL (12.0-18.0)
[2021-02-24 08:56] LABS: BG VENT MODE VENT- P/C; BG VENT RATE 12 set
[2021-02-24] MEDS ORDERED: FUROSEMIDE 40MG/4ML VIAL IVP NR (10:15)
[2021-02-24] MEDS: MORPHINE SULFATE 2 MG/ML CPJ (NOT FOR IM USE) IV PRN ×2 (12:23→18:11)
[2021-02-24 13:21] LABS: CHLORIDE 98 mEq/L (98-107)
[2021-02-24] MEDS ORDERED: DEXT 5% WATER + KCL 40MEQ/L 250 ML IV SCH (16:00)
[2021-02-24] MEDS: LORAZEPAM 2MG/ML CPJ IV PRN ×2 (16:36→20:38)
[2021-02-24] MEDS ORDERED: POTASSIUM CHLORIDE INJ 40 MEQ in DEXT 5% WATER 250 ML IV NR (17:00)
[2021-02-24 22:37] LABS: CHLORIDE 100 mEq/L (98-107)
[2021-02-24] MEDS: DEXT 5%/LACTATED RINGERS 1,000 ML IV SCH (23:12)
[2021-02-25] VITALS (15 sets, daily range): BP systolic 95–160; BP diastolic 30–116
[2021-02-25] MEDS: IPRATROPIUM/ALBUTEROL 0.5-3(2.5)MG/3ML NEB HHN SCH ×5 (00:26→20:13)
[2021-02-25] MEDS ORDERED: METHYLPREDNISOLONE SOD SUCC 40 MG/ML VIAL IV SCH (09:00)
[2021-02-25] MEDS: MIDODRINE HCL 5MG TABLET PO SCH ×3 (09:00→17:00)
[2021-02-25] MEDS ORDERED: FUROSEMIDE 40MG TABLET PO SCH (09:00)
[2021-02-25] MEDS: FERROUS SULFATE 325MG TABLET PO SCH ×2 (10:07→18:00)
[2021-02-25] MEDS: PANTOPRAZOLE SODIUM 40 MG/VIAL IV SCH ×2 (10:07→20:32)
[2021-02-25] MEDS: SUCRALFATE 1 G/10 ML UDC PO SCH ×4 (10:07→20:32)
[2021-02-25] MEDS: FUROSEMIDE 40MG/4ML VIAL IVP SCH (10:08)
[2021-02-25] MEDS: THIAMINE HCL 100MG TABLET PO SCH (10:08)
[2021-02-25] MEDS: ZINC SULFATE 220 MG ( 50 ) CAPSULE PO SCH (10:09)
[2021-02-25] MEDS: FOLIC ACID 1MG TABLET PO SCH (10:09)
[2021-02-25] MEDS: CHOLECALCIFEROL (D3) 1000 UNIT TABLET PO SCH (10:10)
[2021-02-25] MEDS: ASCORBIC ACID 500 MG TABLET PO SCH ×2 (10:10→20:32)
[2021-02-25 12:07] LABS: CHLORIDE 100 mEq/L (98-107)
[2021-02-25 12:18] LABS: BG BASE EXCESS 11.9 mmol/L (-2.0-2.0); BG CARBOXYHEMOGLOBIN 0.6 % (0.5-1.5); BG DEOXYHEMOGLOBIN 6.4 % (0.0-5.0); BG FRACTION INSPIRED OXYGEN 40; BG HCO3 ACT 34.9 mmol/L (22.0-26.0); BG METHEMOGLOBIN 0.3 % (0.0-1.5); BG OXYGEN SATURATION 93.5 % (92.0-98.5); BG OXYHEMOGLOBIN 92.7 % (94.0-97.0); BG PCO2 38.9 mmHg (35.0-45.0); BG PH 7.571 (7.350-7.450); BG PO2 63.2 mmHg (75.0-100.0); BG SAMPLE SITE LEFT RADIAL; BG TOTAL HEMOGLOBIN 10.1 g/dL (12.0-18.0); BG VENT MODE VENT - AC
[2021-02-25] MEDS ORDERED: ACETAZOLAMIDE SODIUM 500MG/VIAL IV NR (13:30)
[2021-02-25] MEDS ORDERED: KCL 20MEQ/100ML PREMIX 100 ML IV NR (14:00)
[2021-02-25] MEDS ORDERED: CEFAZOLIN 1000MG PREMIX 50 ML IV NR (15:00)
[2021-02-25 15:17] LABS: HEMATOCRIT 27.2 % (36.0-48.0); HEMOGLOBIN 8.9 g/dL (12.0-16.0); MEAN CORPUSCULAR HEMOGLOBIN 30.7 pg (28.0-32.0); PLATELET 103 x1000/uL (130-400); RED BLOOD CELL COUNT 2.89 mill/uL (4.2-5.4)
[2021-02-25 15:24] LABS: INR 1.2; PROTHROMBIN TIME 12.4 sec (9.6-11.0)
[2021-02-25] MEDS ORDERED: MIDAZOLAM HCL 5 MG/5 ML VIAL ONE (15:54)
[2021-02-25] MEDS ORDERED: FENTANYL CITRATE/PF 50MCG/ML 2ML VIAL ONE (15:54)
[2021-02-25] MEDS: DEXT 5%/LACTATED RINGERS 1,000 ML IV SCH (20:51)
[2021-02-26] VITALS (12 sets, daily range): BP systolic 86–121; BP diastolic 38–61
[2021-02-26] MEDS: IPRATROPIUM/ALBUTEROL 0.5-3(2.5)MG/3ML NEB HHN SCH ×5 (00:13→20:47)
[2021-02-26] MEDS: SUCRALFATE 1 G/10 ML UDC PO SCH ×4 (06:12→20:42)
[2021-02-26] MEDS ORDERED: METHYLPREDNISOLONE SOD SUCC 40 MG/ML VIAL IV SCH (09:00)
[2021-02-26] MEDS: PANTOPRAZOLE SODIUM 40 MG/VIAL IV SCH ×2 (09:28→20:42)
[2021-02-26] MEDS: FERROUS SULFATE 325MG TABLET PO SCH ×2 (09:28→18:45)
[2021-02-26] MEDS: FUROSEMIDE 40MG/4ML VIAL IVP SCH (09:29)
[2021-02-26] MEDS: FOLIC ACID 1MG TABLET PO SCH (09:29)
[2021-02-26] MEDS: MIDODRINE HCL 5MG TABLET PO SCH ×3 (09:30→18:45)
[2021-02-26] MEDS: THIAMINE HCL 100MG TABLET PO SCH (09:30)
[2021-02-26] MEDS: ASCORBIC ACID 500 MG TABLET PO SCH ×2 (09:30→20:41)
[2021-02-26] MEDS: ZINC SULFATE 220 MG ( 50 ) CAPSULE PO SCH (09:31)
[2021-02-26] MEDS: SPIRONOLACTONE 25MG TABLET PO SCH (12:19)
[2021-02-26] MEDS: CHOLECALCIFEROL (D3) 1000 UNIT TABLET PO SCH (12:19)
[2021-02-26] MEDS: DEXT 5%/LACTATED RINGERS 1,000 ML IV SCH (14:15)
[2021-02-26 14:20] LABS: CHLORIDE 105 mEq/L (98-107)
[2021-02-26] MEDS ORDERED: POTASSIUM CHLORIDE 20MEQ/PACKET PO NR (18:30)
[2021-02-26] MEDS ORDERED: POTASSIUM CHLORIDE INJ 40 MEQ in DEXT 5% WATER 250 ML IV NR (20:00)
[2021-02-26] MEDS ORDERED: POTASSIUM CHLORIDE 20MEQ TABLET SR PO SCH ×3 (20:45→23:45)
[2021-02-27] VITALS (12 sets, daily range): BP systolic 98–162; BP diastolic 51–69
[2021-02-27] MEDS ORDERED: POTASSIUM CHLORIDE 20MEQ TABLET SR PO NR
[2021-02-27] MEDS: IPRATROPIUM/ALBUTEROL 0.5-3(2.5)MG/3ML NEB HHN SCH ×6 (01:00→21:10)
[2021-02-27] MEDS ORDERED: POTASSIUM CHLORIDE 20MEQ TABLET SR PO SCH (02:45)
[2021-02-27 06:13] LABS: CHLORIDE 105 mEq/L (98-107)
[2021-02-27] MEDS: SUCRALFATE 1 G/10 ML UDC PO SCH ×4 (06:17→20:50)
[2021-02-27] MEDS: FERROUS SULFATE 325MG TABLET PO SCH ×2 (08:00→18:00)
[2021-02-27] MEDS: SPIRONOLACTONE 25MG TABLET PO SCH (09:00)
[2021-02-27] MEDS: ZINC SULFATE 220 MG ( 50 ) CAPSULE PO SCH (09:00)
[2021-02-27] MEDS: FOLIC ACID 1MG TABLET PO SCH (09:00)
[2021-02-27] MEDS: FUROSEMIDE 40MG/4ML VIAL IVP SCH (09:00)
[2021-02-27] MEDS: THIAMINE HCL 100MG TABLET PO SCH (09:00)
[2021-02-27] MEDS: ASCORBIC ACID 500 MG TABLET PO SCH ×2 (09:00→20:50)
[2021-02-27] MEDS: MIDODRINE HCL 5MG TABLET PO SCH ×3 (09:00→17:00)
[2021-02-27] MEDS: CHOLECALCIFEROL (D3) 1000 UNIT TABLET PO SCH (09:00)
[2021-02-27] MEDS: PANTOPRAZOLE SODIUM 40 MG/VIAL IV SCH ×2 (09:00→20:50)
[2021-02-27] MEDS ORDERED: BUPIVACAINE HCL 0.5% (5MG/ML) 50ML ONE (10:48)
[2021-02-27] MEDS: DEXT 5%/LACTATED RINGERS 1,000 ML IV SCH (11:11)
[2021-02-27] MEDS ORDERED: CEFAZOLIN 1000MG PREMIX 50 ML IV SCH (13:30)
[2021-02-27] MEDS ORDERED: ROCURONIUM BROMIDE 10MG/ML VIAL 5ML IV ONE (13:32)
[2021-02-27] MEDS ORDERED: CEFAZOLIN SODIUM 1000MG/VIAL ONE (13:33)
[2021-02-27] MEDS ORDERED: GENTAMICIN SULFATE 200 MG in SODIUM CHLORIDE 0.9% 100 ML IV NR (14:00)
[2021-02-27] MEDS ORDERED: CEFAZOLIN 1000MG PREMIX 50 ML IV NR (17:00)
[2021-02-27] MEDS ORDERED: GENTAMICIN 100MG PREMIX 50 ML IV SCH (17:00)
[2021-02-28] VITALS (29 sets, daily range): BP systolic 83–141; BP diastolic 41–69
[2021-02-28] MEDS: IPRATROPIUM/ALBUTEROL 0.5-3(2.5)MG/3ML NEB HHN SCH ×6 (00:16→20:41)
[2021-02-28] MEDS: SUCRALFATE 1 G/10 ML UDC PO SCH ×3 (09:38→22:22)
[2021-02-28] MEDS: PANTOPRAZOLE SODIUM 40 MG/VIAL IV SCH ×2 (09:39→22:22)
[2021-02-28] MEDS: FUROSEMIDE 40MG/4ML VIAL IVP SCH (09:39)
[2021-02-28] MEDS: CHOLECALCIFEROL (D3) 1000 UNIT TABLET PO SCH (09:40)
[2021-02-28] MEDS: ASCORBIC ACID 500 MG TABLET PO SCH ×2 (09:40→22:22)
[2021-02-28] MEDS: FERROUS SULFATE 325MG TABLET PO SCH (09:40)
[2021-02-28] MEDS: SPIRONOLACTONE 25MG TABLET PO SCH (09:40)
[2021-02-28] MEDS: ZINC SULFATE 220 MG ( 50 ) CAPSULE PO SCH (09:40)
[2021-02-28] MEDS: MIDODRINE HCL 5MG TABLET PO SCH ×3 (09:41→17:27)
[2021-02-28] MEDS: THIAMINE HCL 100MG TABLET PO SCH (09:41)
[2021-02-28] MEDS: FOLIC ACID 1MG TABLET PO SCH (09:41)
[2021-02-28] MEDS: DEXT 5%/LACTATED RINGERS 1,000 ML IV SCH ×2 (12:28→22:22)
[2021-03-01] VITALS (17 sets, daily range): BP systolic 74–126; BP diastolic 41–71
[2021-03-01] MEDS: IPRATROPIUM/ALBUTEROL 0.5-3(2.5)MG/3ML NEB HHN SCH ×6 (00:29→20:13)
[2021-03-01] MEDS: SUCRALFATE 1 G/10 ML UDC PO SCH ×4 (07:30→20:38)
[2021-03-01] MEDS: FERROUS SULFATE 325MG TABLET PO SCH ×2 (08:00→17:12)
[2021-03-01] MEDS: THIAMINE HCL 100MG TABLET PO SCH (09:21)
[2021-03-01] MEDS: PANTOPRAZOLE SODIUM 40 MG/VIAL IV SCH ×2 (09:21→20:38)
[2021-03-01] MEDS: CHOLECALCIFEROL (D3) 1000 UNIT TABLET PO SCH (09:22)
[2021-03-01] MEDS: ASCORBIC ACID 500 MG TABLET PO SCH ×2 (09:22→20:38)
[2021-03-01] MEDS: SPIRONOLACTONE 25MG TABLET PO SCH (09:22)
[2021-03-01] MEDS: FUROSEMIDE 40MG TABLET PO SCH (09:23)
[2021-03-01] MEDS: MIDODRINE HCL 5MG TABLET PO SCH ×4 (09:23→17:12)
[2021-03-01] MEDS: ZINC SULFATE 220 MG ( 50 ) CAPSULE PO SCH (09:24)
[2021-03-01] MEDS: FOLIC ACID 1MG TABLET PO SCH (09:24)
[2021-03-01] MEDS: DEXT 5%/LACTATED RINGERS 1,000 ML IV SCH (20:39)
[2021-03-02] VITALS (14 sets, daily range): BP systolic 85–126; BP diastolic 35–75
[2021-03-02] MEDS: IPRATROPIUM/ALBUTEROL 0.5-3(2.5)MG/3ML NEB HHN SCH ×6 (00:14→20:24)
[2021-03-02] MEDS: PANTOPRAZOLE SODIUM 40 MG/VIAL IV SCH ×2 (08:37→21:26)
[2021-03-02] MEDS: SUCRALFATE 1 G/10 ML UDC PO SCH ×4 (08:38→21:26)
[2021-03-02] MEDS: THIAMINE HCL 100MG TABLET PO SCH (08:38)
[2021-03-02] MEDS: ZINC SULFATE 220 MG ( 50 ) CAPSULE PO SCH (08:38)
[2021-03-02] MEDS: MIDODRINE HCL 5MG TABLET PO SCH ×3 (08:38→16:43)
[2021-03-02] MEDS: FOLIC ACID 1MG TABLET PO SCH (08:38)
[2021-03-02] MEDS: CHOLECALCIFEROL (D3) 1000 UNIT TABLET PO SCH (08:38)
[2021-03-02] MEDS: ASCORBIC ACID 500 MG TABLET PO SCH ×2 (08:38→21:26)
[2021-03-02] MEDS: FERROUS SULFATE 325MG TABLET PO SCH ×2 (08:38→19:01)
[2021-03-02] MEDS: FUROSEMIDE 40MG TABLET PO SCH (08:39)
[2021-03-02] MEDS: SPIRONOLACTONE 25MG TABLET PO SCH (08:39)
[2021-03-03] VITALS (11 sets, daily range): BP systolic 92–110; BP diastolic 50–68
[2021-03-03] MEDS: IPRATROPIUM/ALBUTEROL 0.5-3(2.5)MG/3ML NEB HHN SCH ×5 (00:19→16:06)
[2021-03-03] MEDS: DEXT 5%/LACTATED RINGERS 1,000 ML IV SCH (08:10)
[2021-03-03] MEDS: CHOLECALCIFEROL (D3) 1000 UNIT TABLET PO SCH (08:31)
[2021-03-03] MEDS: FERROUS SULFATE 325MG TABLET PO SCH (08:31)
[2021-03-03] MEDS: FOLIC ACID 1MG TABLET PO SCH (08:32)
[2021-03-03] MEDS: SPIRONOLACTONE 25MG TABLET PO SCH (08:35)
[2021-03-03] MEDS: ZINC SULFATE 220 MG ( 50 ) CAPSULE PO SCH (08:35)
[2021-03-03] MEDS: THIAMINE HCL 100MG TABLET PO SCH (08:35)
[2021-03-03] MEDS: ASCORBIC ACID 500 MG TABLET PO SCH (08:35)
[2021-03-03] MEDS: MIDODRINE HCL 5MG TABLET PO SCH ×3 (08:35→17:30)
[2021-03-03] MEDS: PANTOPRAZOLE SODIUM 40 MG/VIAL IV SCH (08:35)
[2021-03-03] MEDS: SUCRALFATE 1 G/10 ML UDC PO SCH ×3 (08:35→18:47)
[2021-03-03] MEDS ORDERED: FUROSEMIDE 20MG TABLET PO SCH (09:00)
== END 2021-03-03 20:50 | DRG 3 ==
LOC: ER 10:50 → EDBEDREQ 12:50 → EDBEDREQSVC 12:50 → SUPCPDRO 14:01 → CANRESERV 17:50 → ENRESERV 17:50 → EDBEDREQSVC 18:23 → ENRESERV 20:59 → MICUSO 23:39 → MICUNO 02-17 19:18 → MICUSO 02-17 19:19 → MICUNO 02-17 20:30 → 5EST 02-25 03:35
PROVIDERS: ADMIT Internal Medicine; ATTEND Internal Medicine
PROC: 5A1955Z Respiratory Ventilation, Greater than 96 Consecutive Hours (ICD-10-PCS; 2021-02-11)
PROC: 02H633Z Insertion of Infusion Device into Right Atrium, Percutaneous Approach (ICD-10-PCS; 2021-02-11)
PROC: B548ZZA Ultrasonography of Superior Vena Cava, Guidance (ICD-10-PCS; 2021-02-11)
PROC: 0BH17EZ Insertion of Endotracheal Airway into Trachea, Via Natural or Artificial Opening (ICD-10-PCS; 2021-02-11)
PROC: 30233N1 Transfusion of Nonautologous Red Blood Cells into Peripheral Vein, Percutaneous Approach (ICD-10-PCS; 2021-02-17)
PROC: 0DB68ZX Excision of Stomach, Via Natural or Artificial Opening Endoscopic, Diagnostic (ICD-10-PCS; 2021-02-20)
PROC: B51B1ZZ Fluoroscopy of Right Lower Extremity Veins using Low Osmolar Contrast (ICD-10-PCS; 2021-02-21)
PROC: B51F1ZZ Fluoroscopy of Right Pelvic (Iliac) Veins using Low Osmolar Contrast (ICD-10-PCS; 2021-02-21)
PROC: 0B110F4 Bypass Trachea to Cutaneous with Tracheostomy Device, Open Approach (ICD-10-PCS; principal; 2021-02-23)
PROC: 0DNU0ZZ Release Omentum, Open Approach (ICD-10-PCS; 2021-02-28)
PROC: 0DH60UZ Insertion of Feeding Device into Stomach, Open Approach (ICD-10-PCS; 2021-02-28)
DX: A41.9 Sepsis, unspecified organism (principal); L89.153 Pressure ulcer of sacral region, stage 3; L89.893 Pressure ulcer of other site, stage 3; I50.33 Acute on chronic diastolic (congestive) heart failure; I63.9 Cerebral infarction, unspecified; J18.9 Pneumonia, unspecified organism; J96.21 Acute and chronic respiratory failure with hypoxia; J96.22 Acute and chronic respiratory failure with hypercapnia; R65.21 Severe sepsis with septic shock; K26.4 Chronic or unspecified duodenal ulcer with hemorrhage; G92 Toxic encephalopathy; K29.71 Gastritis, unspecified, with bleeding; I21.4 Non-ST elevation (NSTEMI) myocardial infarction; C34.90 Malignant neoplasm of unspecified part of unspecified bronchus or lung; E87.1 Hypo-osmolality and hyponatremia; I82.411 Acute embolism and thrombosis of right femoral vein; N39.0 Urinary tract infection, site not specified; R64 Cachexia; Z16.12 Extended spectrum beta lactamase (ESBL) resistance; Z99.11 Dependence on respirator [ventilator] status; T82.898A Other specified complication of vascular prosthetic devices, implants and grafts, initial encounter; D62 Acute posthemorrhagic anemia; E44.0 Moderate protein-calorie malnutrition; B96.89 Other specified bacterial agents as the cause of diseases classified elsewhere; E83.51 Hypocalcemia; I27.20 Pulmonary hypertension, unspecified; J43.9 Emphysema, unspecified; Z85.038 Personal history of other malignant neoplasm of large intestine; Z85.118 Personal history of other malignant neoplasm of bronchus and lung; B96.20 Unspecified Escherichia coli [E. coli] as the cause of diseases classified elsewhere; D69.6 Thrombocytopenia, unspecified; I25.2 Old myocardial infarction; Z86.718 Personal history of other venous thrombosis and embolism; Z93.1 Gastrostomy status; K46.9 Unspecified abdominal hernia without obstruction or gangrene; K66.0 Peritoneal adhesions (postprocedural) (postinfection); Y82.8 Other medical devices associated with adverse incidents; Y92.89 Other specified places as the place of occurrence of the external cause; Z20.822 Contact with and (suspected) exposure to COVID-19; Z68.25 Body mass index [BMI] 25.0-25.9, adult; D64.9 Anemia, unspecified
CPT/HCPCS: 36415; 36600; 70551; 71045; 71275; 75820; 76937; 80048; 80053; 80061; 80305; 81003; 82040; 82270; 82330; 82375; 82378; 82550; 82553; 82607; 82728; 82746; 82805; 82962; 83036; 83540; 83550; 83605; 83735; 83880; 84100; 84132; 84134; 84145; 84484; 85025; 85027; 85044; 85379; 85384; 86850; 86900; 86920; 87077; 87186; 87426; 88305; 88312; 88313; 93005; 93306; 93970; 94002; 94003; 94640; 99285; A6261; C1725; C1766; C1769; C9113; J0456; J0690; J0696; J1120; J1580; J1644; J1650; J1940; J2060; J2185; J2250; J2270; J2405; J2920; J2930; J3010; J3480; J3490; J7030; J7042; J7050; J7060; J7070; P9016; Q9967; A4315